=== PATIENT | male | born 1990 | race Caucasian/White ===

== ENCOUNTER 2016-09-07 11:50 | Emergency (ER) | payer OTHER ==
--- NOTE | 2016-09-07 12:20 | ED Physician Documentation ---
PD HPI HEADACHE - Stated complaint Stated Complaint: HEADACHE/MALE - Chief complaint Chief Complaint: General - History obtained from History obtained from: Patient - History of Present Illness Timing - onset: How many days ago (4-5) Timing - onset during: Light activity Timing - duration: Days (4-5) Timing - details: Gradual onset, Still present, Waxing and waning Worst headache ever?: Worst headache ever? (yes) Location: Front Quality: Throbbing, Aching, Tightness Associated symptoms: Fever (subjective). No: Stiff neck (some muscle aches in neck, and frontal pressure. No rhinorrhea nor congestion.), Nausea, Vomiting, Weakness Improved by: Rest. No: Quiet Worsened by: No: Light, Noise Contributing factors: Recent illness (feeling chills and achy for the past 4-5 days. No nausea nor vomiting but less appetite. Noted dark urine the past 2 days. No URI symptoms.). No: Trauma Similar symptoms before: Has not had sx before Recently seen: Not recently seen Review of Systems Constitutional: reports: Fever (subjective 4-5 days ago, not feeling feverish the past day), Chills, Myalgias, Fatigue Nose: reports: Sinus pressure / pain (frontal). denies: Rhinorrhea / runny nose , Congestion Throat: denies: Dental pain / toothache, Sore throat Respiratory: denies: Cough GI: denies: Vomiting, Diarrhea Skin: denies: Rash, Lesions Musculoskeletal: reports: Neck pain (muscle aches upper back and lateral neck muscles. No neck stiffness per se.). denies: Back pain Neurologic: denies: Focal weakness, Numbness, Confused, Altered mental status Psychiatric: denies: Anxiety, Insomnia Endocrine: denies: Weight loss, Weight gain Immunocompromised: denies: Immunocompromised PD PAST MEDICAL HISTORY - Past Medical History Past Medical History: No Cardiovascular: None Respiratory: None Neuro: None Endocrine/Autoimmune: None - Present Medications Home Medications: Ambulatory Orders Medication Instructions Recorded Confirmed Dexamethasone [Decadron] 4 mg PO DAILY #5 tablet 09/07/16 HYDROcod/ACETAM 5/325 [[place]thel 5/325] 1 each PO Q6H PRN #20 tablet 09/07/16 Ibuprofen [Motrin] 600 mg PO TID #30 tab 09/07/16 Ondansetron Odt [Zofran] 4 mg TL Q6H PRN #15 tablet 09/07/16 - Allergies Allergies/Adverse Reactions: Allergies Allergy/AdvReac Type Severity Reaction Status Date / Time No Known Drug Allergies Allergy Verified 09/07/16 12:03 PD ED PE NORMAL - Vitals Vital signs reviewed: Yes - General General: Alert and oriented X 3, No acute distress, Well developed/nourished - HEENT HEENT: Ears normal, Moist mucous membranes, Pharynx benign, Other (some frontal sinus tenderness) - Neck Neck: Supple, no meningeal sign, No adenopathy - Cardiac Cardiac: RRR, No murmur - Respiratory Respiratory: Clear bilaterally - Abdomen Abdomen: Soft, Non tender - Back Back: No CVA TTP - Derm Derm: Normal color, Warm and dry, No rash - Neuro Neuro: Alert and oriented X 3, 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, No motor deficit, No sensory deficit, Normal speech - Psych Psych: Normal mood, Normal affect Results - Vitals Vitals: Vital Signs - 24 hr 09/07/16 09/07/16 09/07/16 11:57 13:12 14:55 Temperature 37 C Heart Rate 86 78 72 Respiratory 16 16 18 Rate Blood Pressure 120/67 132/54 H 128/65 O2 Saturation 100 74 L 98 09/07/16 09/07/16 09/07/16 16:24 16:45 18:32 Temperature 36.5 C 36.5 C Heart Rate 70 66 67 Respiratory 18 18 18 Rate Blood Pressure 116/62 114/61 118/74 O2 Saturation 95 96 97 Oxygen O2 Source Room air - Labs Labs: Microbiology 09/07/16 16:10 CSF Culture - Preliminary Cerebral Spinal Fluid Laboratory Tests 09/07/16 09/07/16 09/07/16 12:41 12:55 12:55 WBC 2.9 L RBC 4.18 L Hgb 12.8 L Hct 36.5 L MCV 87.2 MCH 30.6 MCHC 35.1 RDW 12.0 Plt Count 101 L MPV 9.6 Neut # 1.7 Lymph # 0.7 L [place] # 0.5 Eos # 0.0 Baso # 0.0 Absolute Nucleated RBC 0.01 Nucleated RBCs 0.4 Manual Slide Review Indicated Platelet Estimate DECREASED (<130,000) RBC Morph Micro Appear NORMAL APPEARANCE ESR 11 Sodium Potassium Chloride Carbon Dioxide Anion Gap BUN Creatinine Estimated GFR (MDRD) Glucose Calcium Total Bilirubin AST ALT Alkaline Phosphatase C-Reactive Protein Total Protein Albumin Globulin Albumin/Globulin Ratio Lipase Urine Color YELLOW Urine Clarity CLEAR Urine pH 6.0 Ur Specific [place] 1.025 Urine Protein TRACE Urine Glucose (UA) NEGATIVE Urine Ketones 15 H Urine Occult Blood NEGATIVE Urine Nitrite NEGATIVE Urine Bilirubin NEGATIVE Urine Urobilinogen 1 (NORMAL) Ur Leukocyte Esterase NEGATIVE Ur Microscopic Review NOT INDICATED Urine Culture Comments NOT INDICATED CSF Color CSF Clarity Xanthrochromic CSF WBC CSF RBC CSF Cell Count Tube # CSF Glucose CSF Total Protein 09/07/16 09/07/16 12:55 16:10 WBC RBC Hgb Hct MCV MCH MCHC RDW Plt Count MPV Neut # Lymph # [place] # Eos # Baso # Absolute Nucleated RBC Nucleated RBCs Manual Slide Review Platelet Estimate RBC Morph Micro Appear ESR Sodium 134 L Potassium 3.8 Chloride 96 L Carbon Dioxide 29 Anion Gap 9.0 BUN 10 Creatinine 1.0 Estimated GFR (MDRD) 91 Glucose 111 H Calcium 9.4 Total Bilirubin 1.3 H AST 36 ALT 30 Alkaline Phosphatase 62 C-Reactive Protein 4.7 H Total Protein 7.1 Albumin 4.5 Globulin 2.6 Albumin/Globulin Ratio 1.7 Lipase 30 Urine Color Urine Clarity Urine pH Ur Specific [place] Urine Protein Urine Glucose (UA) Urine Ketones Urine Occult Blood Urine Nitrite Urine Bilirubin Urine Urobilinogen Ur Leukocyte Esterase Ur Microscopic Review Urine Culture Comments CSF Color COLORLESS CSF Clarity CLEAR Xanthrochromic ABSENT CSF WBC 2 CSF RBC 389 H CSF Cell Count Tube # CSF TUBE# 3 CSF Glucose 72 H CSF Total Protein 24 - Rads (name of study) head CT Radiology: Prelim report reviewed (no acute process; sinuses appear normal) Procedures - Lumbar Puncture Position: Laying left side Location: L3-L4 Anesthesia: Local lidocaine CSF: Other (I was unable to get into the dural space on 2 attempts, so called for Anesth consult. See his separate note. Report is clear CSF, and obtained lab evaluation of the fluid.) Other: Sterile prep and drape, Other (unable to obtain CSF; patient with some pain discomfort during the procedure. More IV pain meds given prior to Anesth attempt.). No: Bleeding PD MEDICAL DECISION MAKING - ED course Complexity details: reviewed results (CT and LP are good. CBC showing low WBC, consider viral in lieu of clear CSF (only 2 WBCs and no organisms). ), re- evaluated patient (Labs with low WBC 2.9 and platelets 101. CRP elevated. Seems likely viral but with illness/fever, headache and some abnormal labs, I feel meningitis is potential. DIscussed LP with patient with questions answered and verbal consent. His headache is better with meds and he feels improved. ), considered differential (has subjective illness/chills and worst headache ever. No history of migraines. Gradual onset of headache, so does not sound SAH. Would be concerned for viral illness, sinusitis, but also meningitis, though he does not look that ill nor symptomatic. Start with IV fluids and meds, CT to evaluate for mass effect/sinus/abscess. I talked with him about potential LP. ) , d/w patient, d/w strategic sourcing consultant (Anesth general medical practitioner for assistance with LP. ) Departure - Departure Disposition: 01 Home, Self Care Clinical Impression: Flu-like symptoms Headache Qualifiers: Headache type: unspecified Headache chronicity pattern: acute headache Intractability: not intractable Qualified Code(s): R51 - Headache Condition: Stable Record reviewed to determine appropriate education?: Yes Instructions: ED Cephalgia Unspecified, ED Viral Syndrome Follow-Up: [facility] [Provider Group] Prescriptions: Dexamethasone [Decadron] 4 mg PO DAILY #5 tablet Ibuprofen [Motrin] 600 mg PO TID #30 tab HYDROcod/ACETAM 5/325 [Ethel 5/325] 1 each PO Q6H PRN #20 tablet PRN Reason: Pain Ondansetron Odt [Zofran] 4 mg TL Q6H PRN #15 tablet PRN Reason: Nausea / Vomiting Comments: Drink lots of fluids. Ibuprofen three times daily. Add Tylenol or hydrocodone as needed for headache. Decadron steroid daily for 5 days. Follow up with PCP in 3 days for recheck and repeat blood tests. Forms: Activity restrictions Discharge Date/Time: 09/07/16 18:32
[2016-09-07] MEDS ORDERED: SODIUM CHLORIDE 0.9% 1,000 ML IV ONE (12:40)
[2016-09-07] MEDS ORDERED: KETOROLAC 60 MG/2 ML VIAL IVP STA (12:40)
[2016-09-07] MEDS ORDERED: ACETAMINOPHEN 325 MG TABLET PO STA (12:40)
[2016-09-07] MEDS ORDERED: MORPHINE 2 MG/ML SYRINGE IVP STA ×3 (12:42→15:43)
[2016-09-07] MEDS ORDERED: KETOROLAC 30 MG/ML VIAL ONE (12:57)
[2016-09-07] MEDS ORDERED: MORPHINE 2 MG/ML SYRINGE ONE ×2 (12:58→15:51)
[2016-09-07] MEDS ORDERED: ACETAMINOPHEN 325 MG TABLET PO ONE (12:58)
[2016-09-07 13:00] LABS: BILIRUBIN,URINE NEGATIVE (NEGATIVE); UA CHARGE (STRIP ONLY) YES; UR CULTURE IF IND NOT INDICATED
[2016-09-07 13:05] LABS: MONOCYTES # (AUTO) 0.5 10^3/uL (0.0-1.0); NEUTROPHILS # (AUTO) 1.7 10^3/uL (1.5-6.6)
[2016-09-07 13:07] LABS: EOSINOPHILS % (AUTO) 0.3 %; HGB - HEMOGLOBIN 12.8 g/dL (14.0-18.0); MEAN PLATELET VOLUME 9.6 fL (7.4-11.4); MONOCYTES % (AUTO) 18.2 %; UNCORRECTED WHITE BLOOD COUNT 2.9 x10^3/uL; WHITE BLOOD COUNT 2.9 x10^3/uL (4.8-10.8)
[2016-09-07 13:09] LABS: BASOPHILS % (AUTO) 0.4 %; HCT - HEMATOCRIT 36.5 % (42.0-52.0); LYMPHOCYTES # (AUTO) 0.7 10^3/uL (1.5-3.5); LYMPHOCYTES % (AUTO) 23.1 %; MEAN CORPUSCULAR HEMOGLOBIN 30.6 pg (27.0-31.0); MEAN CORPUSCULAR HGB CONC 35.1 g/dL (32.0-36.0); MEAN CORPUSCULAR VOLUME 87.2 fL (80.0-94.0); NUCLEATED RED BLOOD CELLS AUTO 0.4 /100WBC; RED BLOOD COUNT 4.18 10^6/uL (4.70-6.10)
[2016-09-07 13:24] LABS: ALBUMIN/GLOBULIN RATIO 1.7 (1.0-2.2); BILIRUBIN,TOTAL 1.3 mg/dL (0.2-1.0); CALCIUM 9.4 mg/dL (8.5-10.3); POTASSIUM 3.8 mmol/L (3.5-5.0); TOTAL PROTEIN 7.1 g/dL (6.7-8.2)
[2016-09-07 13:39] LABS: PLATELET ESTIMATE, MANUAL DECREASED (<130,000) (NORMAL)
--- NOTE | 2016-09-07 13:42 | CT Preliminary Report ---
Exam: CT Head W/O IMPRESSION: Normal head CT. [facility] SITE ID: [id number]
--- NOTE | 2016-09-07 13:51 | CT Report ---
EXAM: CT HEAD EXAM DATE: 09/07/2016 01:23 PM. CLINICAL HISTORY: Headache for 5 days. COMPARISON: None. TECHNIQUE: Multiaxial CT images were obtained from the foramen magnum to the vertex. IV contrast: Non e. Reformats: Coronal. In accordance with CT protocol optimization, one or more of the following dose reduction techniques w ere utilized for this exam: automated exposure control, adjustment of mA and/or KV based on patient s ize, or use of iterative reconstructive technique. FINDINGS: Parenchyma: No intraparenchymal hemorrhage. No evidence of mass, midline shift, or CT findings of inf arction. Ramirez-white differentiation is distinct. Extraaxial Spaces: Normal for age. No subdural or epidural collections identified. Ventricles: Normal in size and position. Sinuses: Imaged paranasal sinuses, orbits, and mastoids show no significant abnormality. Bones: No evidence of fracture or calvarial defect. Other: None. IMPRESSION: Normal head CT. [facility] Referring Provider Line: [phone] SITE ID: [id number]
[2016-09-07] MEDS ORDERED: DEXAMETHASONE 10 MG/ML VIAL IVP STA (14:19)
[2016-09-07] MEDS ORDERED: DEXAMETHASONE 10 MG/ML VIAL ONE (15:05)
[2016-09-07] MEDS ORDERED: MIDAZOLAM 2 MG/2 ML VIAL IVP STA (15:48)
[2016-09-07] MEDS ORDERED: MIDAZOLAM 2 MG/2 ML VIAL ONE (15:51)
[2016-09-07 16:52] LABS: CLARITY,CSF CLEAR (CLEAR); COLOR,CSF COLORLESS (COLORLESS); CSF XANTHOCHROMIA ABSENT (ABSENT); WHITE BLOOD CELL,CSF 2 /mm^3 (0-5)
[2016-09-07 16:55] LABS: CSF - GLUCOSE 72 mg/dL (45-70)
[2016-09-07 18:34] VITALS: BP 118/74
== END 2016-09-07 18:32 | disposition home or self-care (01) ==
LOC: ED 11:50
DX: R51 Headache (principal); R50.9 Fever, unspecified; M54.2 Cervicalgia
CPT/HCPCS: 36415; 62270; 70450; 80053; 81003; 82945; 83690; 84157; 85025; 85651; 86140; 87070; 87205; 87529; 89051; 96361; 96374; 96375; 96376; 99284; A9270; 81001; 87086

== ENCOUNTER 2016-09-09 10:47 | Emergency (ER) | payer OTHER ==
[2016-09-09] MEDS ORDERED: SODIUM CHLORIDE 0.9% 1,000 ML IV ONE (12:37)
[2016-09-09] MEDS ORDERED: ACETAMINOPHEN 325 MG TABLET PO STA (12:38)
[2016-09-09] MEDS ORDERED: MORPHINE 2 MG/ML SYRINGE IVP STA (12:38)
[2016-09-09] MEDS ORDERED: KETOROLAC 60 MG/2 ML VIAL IVP STA (12:38)
--- NOTE | 2016-09-09 12:42 | ED Physician Documentation ---
PD HPI HEADACHE - Stated complaint Stated Complaint: HEADACHE - Chief complaint Chief Complaint: Neuro - History obtained from History obtained from: Patient, Family () - History of Present Illness Timing - onset: Other (He has been sick with fever, sweats, headache for the last 6 days or so. He was getting better and then got worse again yesterday. He was seen here 2 days ago, workup demonstrated leukopenia and mild elevated bilirubin, negative spinal tap. He is not worse but feels like he cannot work. There is no associated sore throat, cough, URI symptoms, urinary complaints, abdominal pain. No recent travel or rash.) Review of Systems Constitutional: reports: Fever, Chills, Myalgias, Fatigue, Sweats Ears: denies: Ear pain Nose: denies: Rhinorrhea / runny nose, Congestion Throat: denies: Sore throat Respiratory: denies: Dyspnea, Cough GI: reports: Nausea (mild). denies: Abdominal Pain : denies: Dysuria Musculoskeletal: denies: Neck pain, Back pain PD PAST MEDICAL HISTORY - Past Medical History Cardiovascular: None Respiratory: None Neuro: None Endocrine/Autoimmune: None - Past Surgical History Past Surgical History: No - Present Medications Home Medications: Ambulatory Orders Medication Instructions Recorded Confirmed Dexamethasone [Decadron] 4 mg PO DAILY #5 tablet 09/07/16 09/09/16 HYDROcod/ACETAM 5/325 [[place] 5/325] 1 each PO Q6H PRN #20 tablet 09/07/16 Ibuprofen [Motrin] 600 mg PO TID #30 tab 09/07/16 09/09/16 Ondansetron Odt [Zofran] 4 mg TL Q6H PRN #15 tablet 09/07/16 09/09/16 - Allergies Allergies/Adverse Reactions: Allergies Allergy/AdvReac Type Severity Reaction Status Date / Time No Known Drug Allergies Allergy Verified 09/07/16 12:03 - Social History Does the pt smoke?: Yes Smoking Status: Current every day smoker Does the pt drink ETOH?: Yes Does the pt have substance abuse?: No - Immunizations Immunizations are current?: Yes PD ED PE NORMAL - Vitals Vital signs reviewed: Yes - General General: Alert and oriented X 3, No acute distress - HEENT HEENT: PERRL, EOMI, Ears normal, Moist mucous membranes, Pharynx benign - Neck Neck: Supple, no meningeal sign, No bony TTP, No adenopathy - Cardiac Cardiac: RRR, No murmur - Respiratory Respiratory: No respiratory distress, Clear bilaterally - Abdomen Abdomen: Non tender - Derm Derm: No rash - Neuro Neuro: Alert and oriented X 3, Normal speech - Psych Psych: Normal mood, Normal affect Results - Vitals Vitals: Vital Signs - 24 hr 09/09/16 10:54 Temperature 38.1 C H Heart Rate 112 H Respiratory 18 Rate Blood Pressure 105/59 L O2 Saturation 100 Oxygen O2 Source Room air - Labs Labs: Laboratory Tests 09/09/16 09/09/16 12:45 12:55 Infectious [place] Assay NEGATIVE Influenza A (Rapid) Negative Influenza B (Rapid) Negative Influenza Types A,B Ag - PD MEDICAL DECISION MAKING - ED course ED course: 26-year-old gentleman presents with headache and fever. Meningitis has already been ruled out by LP. Prior labs were consistent with viral syndrome, flu and Monospot were negative today. [place] better after meds and fluids. Departure - Departure Disposition: 01 Home, Self Care Clinical Impression: Flu-like symptoms Headache Qualifiers: Headache type: unspecified Headache chronicity pattern: acute headache Intractability: not intractable Qualified Code(s): R51 - Headache Condition: Good Record reviewed to determine appropriate education?: Yes Instructions: ED Viral Syndrome Comments: At your request I have ordered a Lyme test, although this is unlikely given recent travel out of the area or known tick bite. You are responsible for following up with your primary care physician to get the results. Call your doctor to arrange a follow-up appointment, make the next available appointment. In the interim, return anytime if worse or if new symptoms develop. Forms: Activity restrictions
[2016-09-09] MEDS ORDERED: KETOROLAC 30 MG/ML VIAL ONE (13:01)
[2016-09-09] MEDS ORDERED: ACETAMINOPHEN 325 MG TABLET PO ONE (13:01)
[2016-09-09] MEDS ORDERED: MORPHINE 2 MG/ML SYRINGE ONE (13:01)
[2016-09-09 13:24] LABS: MONO NEG QC NEGATIVE (Negative); MONO POS QC POSITIVE (Positive)
[2016-09-09 13:57] VITALS: BP 128/63
[2016-09-12 21:02] LABS: 18 KD (IGG) BAND NON-REACTIVE (()); 23 KD (IGG) BAND NON-REACTIVE (()); 28 KD (IGG) BAND NON-REACTIVE (()); 30 KD (IGG) BAND NON-REACTIVE (()); 39 KD (IGG) BAND NON-REACTIVE (()); 41 KD (IGG) BAND NON-REACTIVE (()); 41 KD (IGM) BLOT NON-REACTIVE (()); 45 KD (IGG) BAND NON-REACTIVE (()); 58 KD (IGG) BAND NON-REACTIVE (()); 66 KD (IGG) BAND REACTIVE (()); 93 KD (IGG) BAND REACTIVE (())
== END 2016-09-09 13:58 | disposition home or self-care (01) ==
LOC: ED 10:47
DX: R51 Headache (principal); R50.9 Fever, unspecified; R61 Generalized hyperhidrosis; F17.200 Nicotine dependence, unspecified, uncomplicated
CPT/HCPCS: 36415; 86308; 86617; 87275; 87276; 96374; 96375; 99283; 99284; A9270

== ENCOUNTER 2018-02-28 14:37 | Emergency (ER) | payer OTHER ==
[2018-02-28 14:45] VITALS: BP 153/84
--- NOTE | 2018-02-28 14:51 | ED Physician Documentation ---
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 He notes no masses. Pain is not severe.) Review of Systems Constitutional: denies: Fever, Chills : denies: Dysuria, Frequency, Hesitancy, Unable to Void, Incontinent, Hematuria, Discharge PD PAST MEDICAL HISTORY - Past Medical History Past Medical History: No Cardiovascular: None Respiratory: None Endocrine/Autoimmune: None - Past Surgical History Past Surgical History: No - Present Medications Home Medications: Ambulatory Orders Medication Instructions Recorded Confirmed Dexamethasone [Decadron] 4 mg PO DAILY #5 tablet 09/07/16 09/09/16 HYDROcod/ACETAM 5/325 [[place] 5/325] 1 each PO Q6H PRN #20 tablet 09/07/16 09/09/16 Ibuprofen [Motrin] 600 mg PO TID #30 tab 09/07/16 09/09/16 Ondansetron Odt [Zofran] 4 mg TL Q6H PRN #15 tablet 09/07/16 09/09/16 - Allergies Allergies/Adverse Reactions: Allergies Allergy/AdvReac Type Severity Reaction Status Date / Time No Known Drug Allergies Allergy Verified 09/07/16 12:03 - Social History Does the pt smoke?: Yes Smoking Status: Current every day smoker Does the pt drink ETOH?: Yes Does the pt have substance abuse?: No - Immunizations Immunizations are current?: Yes - POLST Patient has POLST: No PD ED PE NORMAL - Vitals Vital signs reviewed: Yes - General General: Alert and oriented X 3, No acute distress - Abdomen Abdomen: Normal bowel sounds, Soft, Non tender - Male Male : Other (Normal genitalia without hernia mass or testicular tenderness. Normal lie. Normal cremaster reflex on the right.) - Back Back: No CVA TTP, No spinal TTP - Derm Derm: No rash - Neuro Neuro: Alert and oriented X 3, Normal speech Results - Vitals Vitals: Vital Signs - 24 hr 02/28/18 14:41 Temperature 36.5 C Heart Rate 74 Respiratory 16 Rate Blood Pressure 153/84 H O2 Saturation 99 Oxygen O2 Source Room air - Labs Labs: Laboratory Tests 02/28/18 15:06 Urine Color YELLOW Urine Clarity CLEAR Urine pH 6.0 Ur Specific [place] 1.025 Urine Protein NEGATIVE Urine Glucose (UA) NEGATIVE Urine Ketones TRACE Urine Occult Blood NEGATIVE Urine Nitrite NEGATIVE Urine Bilirubin NEGATIVE Urine Urobilinogen 0.2 (NORMAL) Ur Leukocyte Esterase NEGATIVE Ur Microscopic Review NOT INDICATED Urine Culture Comments NOT INDICATED - Rads (name of study) Testicular sono Radiology: EMP read contemporaneously (Normal with the exception of a small left varicocele) PD MEDICAL DECISION MAKING - ED course ED course: He presents with symptoms most reminiscent of a pulled muscle in the groin, given the testicular component and ultrasound was done without pertinent findings. He declined pain medication. Departure - Departure Disposition: 01 Home, Self Care Clinical Impression: Testicular pain, right Strain of groin Qualifiers: Encounter type: initial encounter Laterality: right Qualified Code(s): S76.211A - Strain of adductor muscle, fascia and tendon of right thigh, initial encounter Condition: Good Record reviewed to determine appropriate education?: Yes Instructions: ED Strain Groin Comments: Return for new or worsening symptoms. Follow-up with your doctor in a week if not better. Your blood pressure was elevated today on check into the emergency department. This does not mean that you have hypertension, it is a common phenomenon to come to the emergency department and have elevated blood pressure. I recommend that you see your primary care physician within the week to have it rechecked when you are feeling better.
[2018-02-28 15:18] LABS: BILIRUBIN,URINE NEGATIVE (NEGATIVE); GLUCOSE, URINE (UA) NEGATIVE (NEGATIVE); KETONES,URINE (UA) TRACE mg/dL (NEGATIVE); LEUKOCYTE ESTERASE, URINE NEGATIVE (NEGATIVE); NITRITE,URINE NEGATIVE (NEGATIVE); OCCULT BLOOD,URINE NEGATIVE (NEGATIVE); PROTEIN,URINE NEGATIVE (NEGATIVE); UROBILINOGEN,URINE 0.2 (NORMAL) E.U./dL (NORMAL)
[2018-02-28 15:30] LABS: CLARITY,URINE CLEAR (CLEAR)
--- NOTE | 2018-02-28 16:32 | Ultrasound Report ---
Reason: R testicle pain Procedure Date: 02/28/2018 Accession Number: [id number] / [id number] Procedure: US - Testicle w/Doppler CPT Code: FULL RESULT: EXAM: SCROTAL ULTRASOUND EXAM DATE: 02/28/2018 04:14 PM. CLINICAL HISTORY: Right testicle pain. COMPARISON: None. TECHNIQUE: Real-time scanning was performed with static images obtained. Color-flow images were utilized. FINDINGS: Right: Testis: 5.1 x 3.8 x 2.2 cm. Normal size and echotexture. No mass, calcification, or abnormal blood flow. Epididymis: 2.9 x 0.5 x 0.5 cm. Normal size and echotexture. No mass or abnormal blood flow. Hydrocele: None. Varicocele: None. Left: Testis: 5.3 x 3.7 x 2.5 cm. Normal size and echotexture. No mass, calcification, or abnormal blood flow. Epididymis: 2.5 x 0.7 x 0.5 cm. Normal size and echotexture. No mass or abnormal blood flow. Hydrocele: None. Varicocele: Mild. IMPRESSION: Mild left varicocele, otherwise unremarkable scrotal ultrasound. No cause for right sided pain identified. [facility]
== END 2018-02-28 16:55 | disposition home or self-care (01) ==
LOC: ED 14:37
DX: N50.811 Right testicular pain (principal); S76.211A Strain of adductor muscle, fascia and tendon of right thigh, initial encounter; X50.0XXA Overexertion from strenuous movement or load, initial encounter; Y93.H3 Activity, building and construction; Y99.0 Civilian activity done for income or pay; R03.0 Elevated blood-pressure reading, without diagnosis of hypertension; F17.200 Nicotine dependence, unspecified, uncomplicated
CPT/HCPCS: 76870; 81001; 81003; 87086; 87491; 87591; 93975; 99283

== ENCOUNTER 2018-07-25 02:14 | Emergency (ER) | payer OTHER ==
--- NOTE | 2018-07-25 02:31 | ED Physician Documentation ---
History of Present Illness - Stated complaint Stated Complaint: HEADACHE/FACIAL NUMBNESS - Chief complaint Chief Complaint: Neuro - History obtained from History obtained from: Patient - History of Present Illness Timing: Prior to arrival - Additonal information Additional information: Patient is a previously healthy 28-year-old male presenting with concern for perioral and bilateral hand paresthesias after taking Motrin for a frontal headache earlier tonight. Patient reports that he has taken Motrin without issue in the past. Patient reports that he has suffered from headaches previously and this is similar to such. No history of migraines. Patient denies any trauma, inciting incident, or fall. He also denies any changes in strength to his face or body, as well as any other paresthesias. Patient denies vision changes, nausea, vomiting, neck pain, fever, or other concerns. Patient does admit to feeling anxious about the headache earlier tonight and is unsure if he was hyperventilating. Symptoms have nearly resolved. Patient was at his normal state of health prior to onset of symptoms today. No other improving or worsening factors noted. Review of Systems Constitutional: denies: Fever Eyes: denies: Loss of vision Neurologic: reports: Headache PD PAST MEDICAL HISTORY - Past Medical History Cardiovascular: None Respiratory: None Endocrine/Autoimmune: None - Past Surgical History Past Surgical History: No - Present Medications Home Medications: Ambulatory Orders Medication Instructions Recorded Confirmed No Known Home Medications 07/25/18 07/25/18 - Allergies Allergies/Adverse Reactions: Allergies Allergy/AdvReac Type Severity Reaction Status Date / Time No Known Drug Allergies Allergy Verified 07/25/18 02:21 - Social History Does the pt smoke?: Yes Smoking Status: Current every day smoker Does the pt drink ETOH?: Yes Does the pt have substance abuse?: No - Immunizations Immunizations are current?: Yes - POLST Patient has POLST: No PD ED PE NORMAL - Vitals Vital signs reviewed: Yes (BP 127/64) - General General: Alert and oriented X 3, No acute distress, Well developed/nourished - HEENT HEENT: Atraumatic, PERRL, EOMI (No nystagmus. Gross visual acuity intact.), Moist mucous membranes, Pharynx benign - Neck Neck: Supple, no meningeal sign - Cardiac Cardiac: RRR, No murmur - Respiratory Respiratory: No respiratory distress, Clear bilaterally - Abdomen Abdomen: Soft, Non tender, Non distended - Derm Derm: Normal color, Warm and dry, No rash - Extremities Extremities: No deformity, No tenderness to palpate - Neuro Neuro: Alert and oriented X 3, pump tender 2-12 intact, No motor deficit, No sensory deficit - Psych Psych: Normal mood, Normal affect Results - Vitals Vitals: Vital Signs - 24 hr 07/25/18 02:18 Temperature 36.6 C Heart Rate 70 Respiratory 16 Rate O2 Saturation 100 Oxygen O2 Source Room air PD MEDICAL DECISION MAKING - ED course Complexity details: considered differential, d/w patient ED course: Patient presenting with tension-like headache for which he took Motrin and subsequently developed perioral and bilateral hand paresthesias. Patient reports that he was anxious, but is not sure if he was hyperventilating. Patient denies symptoms that would raise high suspicion for encephalitis, meningitis, stroke, other intracranial injury, migraine, or seizure, but considered. Patient's symptoms have nearly resolved, however, he does appear slightly anxious on exam. Physical exam is relatively unremarkable otherwise with no evidence of trauma, systemic illness, or neurological deficit. At this time, do not feel the patient requires invasive testing or imaging, but discussed supportive cares, watchful waiting/monitoring, strict return precautions, as well as primary care follow-up. Patient agrees and is comfortable with discharge plan. Departure - Departure Disposition: 01 Home, Self Care Clinical Impression: Headache Qualifiers: Headache type: unspecified Headache chronicity pattern: acute headache Intractability: not intractable Qualified Code(s): R51 - Headache Condition: Good Instructions: ED Headache Tension Follow-Up: your,doctor [Other] - Within 3 Days Comments: Recommend follow-up with your doctor in next 2 to 3 days and return to ED sooner if experience worsening symptoms or other concerns. May choose to avoid Motrin in the future, however, feel this is not likely a medication side effect or allergy, but more so hyperventilation or slight anxiety.
[2018-07-25 02:56] VITALS: BP 126/60
== END 2018-07-25 02:56 | disposition home or self-care (01) ==
LOC: ED 02:14
DX: G44.209 Tension-type headache, unspecified, not intractable (principal); R20.2 Paresthesia of skin; F41.9 Anxiety disorder, unspecified; F17.200 Nicotine dependence, unspecified, uncomplicated
CPT/HCPCS: 99282; 99283